=== PATIENT | male | born 1990 | race Caucasian/White ===

== ENCOUNTER 2018-09-08 08:45 | Emergency (ER) | payer SELFPAY ==
[2018-09-08] MEDS: FLUORESCEIN OPHTH 1 MG STRIP OS (09:15)
[2018-09-08] MEDS: TETRACAINE 0.5% OPHTH SOLN 4ML OS (09:15)
[2018-09-08] MEDS: LISINOPRIL 10 MG TAB PO (09:50)
== END 2018-09-08 09:51 | disposition home or self-care (01) ==
LOC: M ED 08:45
DX: T15.02XA Foreign body in cornea, left eye, initial encounter (principal); X58.XXXA Exposure to other specified factors, initial encounter; Y92.89 Other specified places as the place of occurrence of the external cause; Z76.0 Encounter for issue of repeat prescription; I10 Essential (primary) hypertension; Z79.899 Other long term (current) drug therapy
CPT/HCPCS: 99282